=== PATIENT | female | born 1985 | race Hispanic/Latino ===

== ENCOUNTER 2016-11-07 13:58 | Outpatient (CLI) | payer BC, OTHER ==
[2016-11-07 14:43] LABS: ALT (SGPT) 10 U/L (8-55); AST (SGOT) 13 U/L (5-34); Albumin 4.2 g/dL (3.5-5.0); Alkaline Phosphatase 59 U/L (40-150); Anion Gap 12 mmol/L (10-20); BUN (Urea Nitrogen) 14 mg/dL (7.0-18.7); Bilirubin, Total 0.5 mg/dL (0.2-1.2); Calc. Creatinine Clearance 0 mL/min (70-130); Calcium 9.4 mg/dL (7.8-10.44); Carbon Dioxide 26 mmol/L (22-29); Cardiac Risk 2.8 (Less than 4.5); Chloride 105 mmol/L (98-107); Cholesterol 186 mg/dl (< 200 Desired); Estimated GFR-MDRD Greater than 90; Globulin 2.9 g/dL (2.4-3.5); Glucose 94 mg/dL (70-105); HDL Cholesterol 66 mg/dL (>60 Neg Risk); LDL Cholesterol, Calculated 101 mg/dL; Potassium 3.9 mmol/L (3.5-5.1); Protein, Total 7.1 g/dL (6.0-8.3); Sodium 139 mmol/L (136-145); Triglycerides 94 mg/dL (Less than 150)
[2016-11-07 15:03] LABS: #Eosinphils 0.1 thou/uL (0.0-0.7); #Lymphocytes 1.8 thou/uL (1.20-3.40); #Monocytes 0.3 thou/uL (0.11-0.59); #Neutrophils 2.4 thou/uL (1.40-6.50); %Eosinophils 1.1 % (0.0-10.0); %Lymphocytes 39.4 % (21.0-51.0); %Monocytes 6.6 % (0.0-10.0); %Neutrophils 51.9 % (42.0-75.0); Hemoglobin 11.2 g/dL (12.0-16.0); Hypochromia SLIGHT = 6-15 cells (100X) (0-5/hpf); Mean Corpuscular HGB CONC 30.1 g/dL (32.0-36.0); Mean Corpuscular Hemoglobin 24.5 pg (27.0-31.0); Mean Corpuscular Volume 81.4 fl (81.0-99.0); Mean Platelet Volume 6.6 fL (7.4-10.4); Platelet Count 286 thou/uL (130-400); Red Blood Cell (RBC) Count 4.57 mill/uL (4.20-5.40); White Blood Cell (WBC) Count 4.5 thou/uL (4.8-10.8)
[2016-11-07 15:05] LABS: MDiff Complete? YES
== END 2016-11-07 13:59 | disposition home or self-care (01) ==
LOC: HPCALD 13:58
PROVIDERS: ATTEND Physician Assistant
DX: Z68.37 Body mass index [BMI] 37.0-37.9, adult (principal)
CPT/HCPCS: 36415; 80053; 80061; 84443; 85025

== ENCOUNTER 2019-02-13 12:06 | Emergency (ER) | payer OTHER ==
[2019-02-13] MEDS ORDERED: traMADol HCl 50 MG TAB ONE (13:10)
[2019-02-13] MEDS ORDERED: Ibuprofen 800 MG TAB ONE (13:11)
[2019-02-13 13:30] LABS: Bilirubin Negative (Negative); Blood, Urine Negative (Negative); Clarity Clear (Clear); Glucose, Urine (Dipstick) Negative (Negative); Leukocyte Negative (Negative); Nitrite Negative (Negative); Protein, Urine (Dipstick) Negative (Neg-Trace)
--- NOTE | 2019-02-13 13:35 | CT ---
CT BRAIN WITHOUT CONTRAST: Date: 02/13/[address] shows no intracranial bleeding or extra-axial hematoma. The ventricles are normal in size and show no shift. There is no sign of mass, stroke, or edema. A few areas of slightly increase d density at the rim of the left frontal lobe near the vertex of the skull are thought to be due to v olume averaging with the adjacent inner table and not actual bleeding. The visible paranasal sinuses and mastoid air cells are clear. There is no air fluid level in the sphenoid sinus. All visible bony structures appear intact. IMPRESSION: No acute intracranial findings. Findings discussed with Dr. Barnes @ [id number] on 02/13. POS: HOME
--- NOTE | 2019-02-13 13:46 | CT ---
CT CERVICAL SPINE: Date: 02/13/[address] of the cervical spine was performed for evaluation following trauma. Axial slices were acqu ired, followed by coronal and sagittal reconstructions. There is straightening of the cervical spine which may be due to muscle spasm. The C1 to dens distanc e is normal and the soft tissues are normal in thickness. No sign of central canal or foraminal steno sis at any level. There might be a very minor central protrusion of the C4-C5 disc, but it does not a ppear significant. IMPRESSION: Straightening of the cervical spine, possibly due to spasm. No acute findings otherwise. Reports of all scans called to Dr. Barnes at 1245 hours on 02/13/19. CODE CR. POS: HOME
--- NOTE | 2019-02-13 13:49 | CT ---
CT LUMBAR SPINE: Date: 02/13/[address] of the lumbar spine was done following trauma. Axial slices were acquired, followed by vickie nal and sagittal reconstructions. No fracture, dislocation, or disc protrusion seen at any level. No sign of central canal or foraminal stenosis. All vertebral elements appear intact. No sign of hemorrhage in the visible portions of abd omen and pelvis. IMPRESSION: No acute traumatic findings. Findings discussed with Dr. Barnes @ [id number] on 02/13. POS: HOME
--- NOTE | 2019-02-13 13:51 | CT ---
CT PELVIS WITHOUT CONTRAST: Date: 02/13/[address] of the pelvis was done following trauma. All bony structures appear intact with no sign of fracture. The SI joints are symmetric. There is no widening of them or of the pubic symphysis. Pubic rings and hips both appear intact and are symmetrical. The sacrum appears intact. There is no evidence of pelvic hemorrhage. There was a 4.0 cm rounded lucent structure in the left ad nexal region that is most likely an ovarian cyst. An elective ultrasound would characterize it better . There is no free fluid present. IMPRESSION: 1. No acute traumatic changes. 2. Probable 4.0 cm left ovarian cyst. Findings of all scans discussed with Dr. Barnes at 1245 hours 02/13/19. CODE CR. POS: HOME
== END 2019-02-13 13:42 | disposition home or self-care (01) ==
LOC: BURERS 12:06
DX: S80.211A Abrasion, right knee, initial encounter (principal); S09.90XA Unspecified injury of head, initial encounter; F41.9 Anxiety disorder, unspecified; V09.9XXA Pedestrian injured in unspecified transport accident, initial encounter
CPT/HCPCS: 70450; 72125; 72131; 72192; 81003; G0390

== ENCOUNTER 2019-09-23 08:08 | Emergency (ER) | payer OTHER | END 2019-09-23 09:30 | disposition home or self-care (01) | LOC: BURERS 08:08 | DX: R51 Headache (principal); F41.9 Anxiety disorder, unspecified; Z79.899 Other long term (current) drug therapy | CPT/HCPCS: 99284 ==

== ENCOUNTER 2021-05-02 19:39 | Emergency (ER) | payer OTHER ==
[2021-05-02] MEDS ORDERED: Acetaminophen 325 MG TAB ONE (20:28)
== END 2021-05-02 20:35 | disposition home or self-care (01) ==
LOC: BURERS 19:39
DX: M54.50 Low back pain, unspecified (principal); D64.9 Anemia, unspecified; X50.0XXA Overexertion from strenuous movement or load, initial encounter; Y92.69 Other specified industrial and construction area as the place of occurrence of the external cause; Z79.899 Other long term (current) drug therapy
CPT/HCPCS: 99283

== ENCOUNTER 2023-02-27 07:52 | Emergency (ER) | payer OTHER ==
[2023-02-27] MEDS ORDERED: Ketorolac Tromethamine 30 MG/ML VIAL ONE (08:41)
== END 2023-02-27 08:58 | disposition home or self-care (01) ==
LOC: BURERS 07:52
DX: M43.6 Torticollis (principal)
CPT/HCPCS: 72125; 96372; J1885